=== PATIENT | female | born 1945 | race Caucasian/White ===

== ENCOUNTER 2017-08-06 14:33 | Inpatient (IN) | payer MEDICARE, OTHER ==
[~2017-08-06] VITALS: Ht 172.7 cm; Wt 73.6 kg
[2017-08-06] MEDS ORDERED: SODIUM CHLORIDE 0.9% 1,000 ML IV ONE (14:48)
[2017-08-06] MEDS ORDERED: SODIUM CHLORIDE 0.9% 1,000ML IVBOLUS ONE (15:00)
[2017-08-06] MEDS ORDERED: ONDANSETRON 2MG/ML, 2ML IVPush ONE (15:00)
[2017-08-06] MEDS ORDERED: PLEASE ENTER HEIGHT AND WEIGHT MC SCH ×2 (15:00)
[2017-08-06] MEDS ORDERED: PLEASE ENTER ALLERGIES MC SCH ×4 (15:00)
[2017-08-06] MEDS ORDERED: SODIUM CHLORIDE FLUSH 10ML SYR IVF ONE (15:00)
[2017-08-06 15:13] LABS: HEMOGLOBIN 14.9 g/dL (11.7-16.4); WHITE BLOOD COUNT 8.7 x10^3/uL (3.4-10)
[2017-08-06 15:24] LABS: ASPARTATE AMINO TRANSFERASE 20 U/L (15-37); BLOOD UREA NITROGEN 16 mg/dL (7-18)
[2017-08-06] MEDS ORDERED: HYDROmorphone 1 MG/ML, 1ML ONE ×2 (15:51→17:20)
[2017-08-06] MEDS ORDERED: ONDANSETRON 2MG/ML, 2ML ONE ×2 (15:52→18:16)
[2017-08-06] MEDS: HYDROmorphone 1 MG/ML, 1ML IVPush PRN ×2 (15:54→17:21)
[2017-08-06] MEDS ORDERED: NS + 40MEQ KCL 1,000 ML IV SCH (16:30)
[2017-08-06] MEDS ORDERED: POTASSIUM CHLORIDE 20 MEQ in SODIUM CHLORIDE 0.9% 1,000 ML IV ONE (17:00)
[2017-08-06] MEDS ORDERED: SODIUM CHLORIDE FLUSH 10ML SYR IVF PRN (17:00)
[2017-08-06] MEDS ORDERED: NS + 20MEQ KCL 1,000 ML IV ONE (17:26)
[2017-08-06] MEDS ORDERED: BISACODYL 10 MG SUPP PR PRN (17:30)
[2017-08-06] MEDS ORDERED: LABETALOL 5MG/ML, 20ML IVPush PRN (17:30)
[2017-08-06] MEDS ORDERED: POTASSIUM CHLORIDE 40 MEQ in SODIUM CHLORIDE 0.9% 500 ML IV ONE (17:30)
[2017-08-06] MEDS ORDERED: DOCUSATE 100 MG CAPSULE PO PRN (17:30)
[2017-08-06] MEDS ORDERED: HYDROcodone/APAP 5/325 TABLET PO PRN (17:30)
[2017-08-06] MEDS ORDERED: POLYETHYLENE GLYCOL 17 GM PACKET PO PRN (17:30)
[2017-08-06] MEDS ORDERED: ACETAMINOPHEN 325 MG TABLET PO PRN (17:30)
[2017-08-06] MEDS ORDERED: morphine SULFATE 10 MG/ML, 1ML ONE (18:16)
[2017-08-06] MEDS: morphine SULFATE 10 MG/ML, 1ML IVPush PRN ×2 (18:20→22:21)
[2017-08-06] MEDS: ONDANSETRON 2MG/ML, 2ML IVPush PRN (18:21)
[2017-08-06] MEDS ORDERED: MAGNESIUM SULFATE PMX 2GM/50ML 50 ML IV ONE (18:30)
[2017-08-06 18:58] VITALS: BP 143/64
[2017-08-06] MEDS: POTASSIUM CHLORIDE 20 MEQ PACKET PO SCH (22:14)
[2017-08-06] MEDS: HEPARIN 5,000 UNITS/ML, 1ML SQ SCH (22:20)
[2017-08-06 23:01] LABS: PATH.CAST-FLAG NOT PRESENT; SPERM-FLAG NOT PRESENT; SRC-FLAG NOT PRESENT; XTAL-FLAG NOT PRESENT; YLC-FLAG NOT PRESENT
[2017-08-07 01:18] VITALS: BP 129/60
[2017-08-07] MEDS: D5%-0.45NACL+KCL 20MEQ 1,000 ML IV SCH ×2 (02:13→16:44)
[2017-08-07] MEDS: HEPARIN 5,000 UNITS/ML, 1ML SQ SCH ×3 (05:40→21:33)
[2017-08-07 06:11] LABS: HEMOGLOBIN 10.9 g/dL (11.7-16.4)
[2017-08-07 06:14] LABS: ASPARTATE AMINO TRANSFERASE 19 U/L (15-37); BLOOD UREA NITROGEN 12 mg/dL (7-18)
[2017-08-07 06:41] LABS: DIFF TOTAL CELLS COUNTED 100 CELL DIFF
[2017-08-07 07:41] LABS: ANISOCYTOSIS 1+; VERIFY COUNTS? YES
[2017-08-07 07:42] LABS: HYPOCHROMIA 1+
[2017-08-07 07:54] VITALS: BP 135/63
[2017-08-07] MEDS: POTASSIUM CHLORIDE 20 MEQ PACKET PO SCH ×2 (08:00→16:43)
[2017-08-07] MEDS ORDERED: POLYETHYLENE GLYCOL 17 GM PACKET PO PRN (09:00)
[2017-08-07 12:29] VITALS: BP 154/76
[2017-08-07] MEDS: ONDANSETRON 2MG/ML, 2ML IVPush PRN ×2 (13:09→19:03)
[2017-08-07] MEDS: morphine SULFATE 10 MG/ML, 1ML IVPush PRN ×3 (14:07→23:18)
[2017-08-07] MEDS ORDERED: OMNIPAQUE 350 MG/ML, 100ML BOTTLE ONE (15:59)
[2017-08-07 20:00] VITALS: BP 182/94
[2017-08-08 04:40] VITALS: BP 134/71
[2017-08-08 05:35] LABS: HEMATOCRIT 34.6 % (34.6-47.8); HEMOGLOBIN 11.9 g/dL (11.7-16.4)
[2017-08-08 05:49] LABS: BLOOD UREA NITROGEN 3 mg/dL (7-18)
[2017-08-08] MEDS: HEPARIN 5,000 UNITS/ML, 1ML SQ SCH ×3 (06:08→22:00)
[2017-08-08] MEDS: D5%-0.45NACL+KCL 20MEQ 1,000 ML IV SCH ×2 (06:08→18:28)
[2017-08-08 06:57] VITALS: BP 124/73
[2017-08-08] MEDS: POTASSIUM CHLORIDE 20 MEQ PACKET PO SCH ×2 (08:00→17:35)
[2017-08-08 12:58] VITALS: BP 146/83
[2017-08-08 19:31] VITALS: BP 131/78
[2017-08-09 01:40] VITALS: BP 138/81
[2017-08-09] MEDS: D5%-0.45NACL+KCL 20MEQ 1,000 ML IV SCH ×3 (02:51→22:00)
[2017-08-09 05:30] LABS: HEMOGLOBIN 12.1 g/dL (11.7-16.4); WHITE BLOOD COUNT 5.9 x10^3/uL (3.4-10)
[2017-08-09] MEDS: HEPARIN 5,000 UNITS/ML, 1ML SQ SCH ×3 (05:55→22:00)
[2017-08-09 06:00] LABS: ASPARTATE AMINO TRANSFERASE 81 U/L (15-37); BLOOD UREA NITROGEN 2 mg/dL (7-18)
[2017-08-09 06:46] VITALS: BP 158/85
[2017-08-09] MEDS: POTASSIUM CHLORIDE 20 MEQ PACKET PO SCH ×2 (09:44→17:20)
[2017-08-09 13:20] VITALS: BP 154/83
[2017-08-09 19:45] VITALS: BP 158/76
[2017-08-10 03:45] VITALS: BP 155/78
[2017-08-10] MEDS: HEPARIN 5,000 UNITS/ML, 1ML SQ SCH ×2 (05:11→14:00)
[2017-08-10] MEDS: D5%-0.45NACL+KCL 20MEQ 1,000 ML IV SCH (05:12)
[2017-08-10 06:33] LABS: BLOOD UREA NITROGEN 2 mg/dL (7-18)
[2017-08-10 06:38] LABS: ASPARTATE AMINO TRANSFERASE 31 U/L (15-37)
[2017-08-10 06:52] VITALS: BP 145/80
[2017-08-10] MEDS: POTASSIUM CHLORIDE 20 MEQ PACKET PO SCH (08:49)
[2017-08-10 13:42] VITALS: BP 166/81
== END 2017-08-10 16:59 | disposition home or self-care (01) | DRG 389 ==
LOC: ED 16:11 → EDIP 17:13 → 4WST 18:40
PROVIDERS: ADMIT Internal Medicine; ATTEND Internal Medicine
DX: K56.7 Ileus, unspecified (principal); E87.2 Acidosis; D64.9 Anemia, unspecified; I11.9 Hypertensive heart disease without heart failure; R10.9 Unspecified abdominal pain; E87.6 Hypokalemia; E86.0 Dehydration; E78.5 Hyperlipidemia, unspecified; R73.9 Hyperglycemia, unspecified; K58.0 Irritable bowel syndrome with diarrhea; Z66 Do not resuscitate; Z80.0 Family history of malignant neoplasm of digestive organs; Z82.49 Family history of ischemic heart disease and other diseases of the circulatory system; Z90.49 Acquired absence of other specified parts of digestive tract; Z90.710 Acquired absence of both cervix and uterus
CPT/HCPCS: 36415; 74177; 74241; 78264; 80048; 80053; 81001; 82010; 82140; 82962; 83605; 83690; 83735; 84132; 85025; 87086; 93005; 96361; 96365; 96375; 96376; J1170; J1644; J2405; J3480; Q9967; A9541; C9898; J2270; J3475; J7030; J7040

== ENCOUNTER 2017-08-18 14:49 | Inpatient (IN) | payer MEDICARE, OTHER ==
[~2017-08-18] VITALS: Ht 172.7 cm; Wt 66.4 kg
[2017-08-18] MEDS ORDERED: SODIUM CHLORIDE 0.9% 1,000 ML IV ONE ×2 (15:22→16:15)
[2017-08-18] MEDS ORDERED: ONDANSETRON 2MG/ML, 2ML IVPush ONE (15:30)
[2017-08-18] MEDS ORDERED: FAMOTIDINE 20 MG/2 ML IVP ONE (15:30)
[2017-08-18] MEDS ORDERED: HYDROmorphone 1 MG/ML, 1ML ONE ×2 (15:35→16:09)
[2017-08-18] MEDS ORDERED: ONDANSETRON 2MG/ML, 2ML ONE (15:36)
[2017-08-18] MEDS ORDERED: FAMOTIDINE 20 MG/2 ML ONE (15:36)
[2017-08-18 15:41] LABS: HEMATOCRIT 44.6 % (34.6-47.8)
[2017-08-18] MEDS: HYDROmorphone 1 MG/ML, 1ML IVPush PRN ×2 (15:45→19:08)
[2017-08-18 15:55] LABS: BLOOD UREA NITROGEN 11 mg/dL (7-18)
[2017-08-18 15:59] LABS: ASPARTATE AMINO TRANSFERASE 18 U/L (15-37)
[2017-08-18 16:10] LABS: DIFF TOTAL CELLS COUNTED 100 CELL DIFF
[2017-08-18 16:11] LABS: VERIFY COUNTS? YES
[2017-08-18] MEDS ORDERED: SODIUM CHLORIDE FLUSH 10ML SYR IVF PRN (16:30)
[2017-08-18] MEDS ORDERED: SODIUM CHLORIDE 0.9% 1,000 ML IV SCH (16:56)
[2017-08-18] MEDS ORDERED: hydrALAzine 20 MG/ML, 1ML IV PRN (17:00)
[2017-08-18 18:45] VITALS: BP 144/70
[2017-08-18] MEDS: HEPARIN 5,000 UNITS/ML, 1ML SQ SCH (20:06)
[2017-08-18] MEDS: morphine SULFATE 10 MG/ML, 1ML IVPush PRN (20:55)
[2017-08-19 02:46] VITALS: BP 116/62
[2017-08-19] MEDS: HEPARIN 5,000 UNITS/ML, 1ML SQ SCH ×3 (05:17→21:23)
[2017-08-19 05:55] LABS: HEMATOCRIT 37.6 % (34.6-47.8); HEMOGLOBIN 12.5 g/dL (11.7-16.4); WHITE BLOOD COUNT 12.7 x10^3/uL (3.4-10)
[2017-08-19 06:09] LABS: BLOOD UREA NITROGEN 7 mg/dL (7-18)
[2017-08-19 06:12] LABS: ASPARTATE AMINO TRANSFERASE 19 U/L (15-37)
[2017-08-19 06:50] VITALS: BP 115/56
[2017-08-19] MEDS ORDERED: POTASSIUM CHLORIDE 40 MEQ in SODIUM CHLORIDE 0.9% 500 ML IV ONE (07:30)
[2017-08-19] MEDS: ONDANSETRON 2MG/ML, 2ML IVPush PRN ×2 (15:25→21:27)
[2017-08-19] MEDS: morphine SULFATE 10 MG/ML, 1ML IVPush PRN ×2 (15:32→17:45)
[2017-08-19 16:09] VITALS: BP 144/62
[2017-08-19] MEDS ORDERED: NS + 20MEQ KCL 1,000 ML IV SCH (17:00)
[2017-08-19] MEDS: POTASSIUM CHLORIDE 20 MEQ in SODIUM CHLORIDE 0.9% 1,000 ML IV SCH (18:04)
[2017-08-19 18:40] VITALS: BP 136/68
[2017-08-20] MEDS: POTASSIUM CHLORIDE 20 MEQ in SODIUM CHLORIDE 0.9% 1,000 ML IV SCH ×3 (01:33→21:57)
[2017-08-20 01:35] VITALS: BP 122/71
[2017-08-20 06:22] LABS: HEMATOCRIT 33.5 % (34.6-47.8); HEMOGLOBIN 11.2 g/dL (11.7-16.4); WHITE BLOOD COUNT 7.7 x10^3/uL (3.4-10)
[2017-08-20 06:23] LABS: BLOOD UREA NITROGEN 10 mg/dL (7-18)
[2017-08-20 07:51] VITALS: BP 131/68
[2017-08-20] MEDS: HEPARIN 5,000 UNITS/ML, 1ML SQ SCH ×2 (09:38→17:05)
[2017-08-20] MEDS ORDERED: HYDR25TA6 PO (11:11)
[2017-08-20] MEDS ORDERED: CITA20TA5 PO (11:11)
[2017-08-20] MEDS ORDERED: ONDA4TAB12 PO (11:11)
[2017-08-20] MEDS ORDERED: PANT40TA3 PO (11:11)
[2017-08-20] MEDS ORDERED: LISI40TA PO (11:11)
[2017-08-20] MEDS ORDERED: MELO15TA24 PO (11:11)
[2017-08-20] MEDS ORDERED: AMIT50TA PO (11:11)
[2017-08-20 12:20] VITALS: BP 157/75
[2017-08-20] MEDS ORDERED: OMNIPAQUE 350 MG/ML, 100ML BOTTLE ONE (14:30)
[2017-08-20 19:19] VITALS: BP 153/89
[2017-08-21 00:08] VITALS: BP 159/73
[2017-08-21] MEDS: HEPARIN 5,000 UNITS/ML, 1ML SQ SCH ×4 (00:11→23:27)
[2017-08-21 05:14] LABS: WHITE BLOOD COUNT 6.3 x10^3/uL (3.4-10)
[2017-08-21 05:15] LABS: HEMATOCRIT 33.7 % (34.6-47.8); HEMOGLOBIN 11.4 g/dL (11.7-16.4)
[2017-08-21 05:38] LABS: ASPARTATE AMINO TRANSFERASE 17 U/L (15-37); BLOOD UREA NITROGEN 3 mg/dL (7-18)
[2017-08-21] MEDS: POTASSIUM CHLORIDE 20 MEQ in SODIUM CHLORIDE 0.9% 1,000 ML IV SCH ×2 (06:19→20:22)
[2017-08-21 06:25] VITALS: BP 177/98
[2017-08-21 09:00] VITALS: BP 177/92
[2017-08-21] MEDS: CITALOPRAM 20 MG TABLET PO SCH (11:53)
[2017-08-21] MEDS: PANTOPROZOLE 40MG TABLET PO SCH (11:53)
[2017-08-21] MEDS: LISINOPRIL 20 MG TABLET PO SCH (11:54)
[2017-08-21 14:44] VITALS: BP 176/90
[2017-08-21 19:23] VITALS: BP 153/84
[2017-08-21] MEDS: DIPHENHYDRAMINE 25 MG CAPSULE PO PRN (20:22)
[2017-08-21] MEDS: AMITRIPTYLINE 50 MG TABLET PO PRN (20:23)
[2017-08-22 01:52] VITALS: BP 166/77
[2017-08-22] MEDS: HEPARIN 5,000 UNITS/ML, 1ML SQ SCH ×2 (08:00→19:56)
[2017-08-22 08:04] VITALS: BP 170/81
[2017-08-22] MEDS: LISINOPRIL 20 MG TABLET PO SCH (08:36)
[2017-08-22] MEDS: CITALOPRAM 20 MG TABLET PO SCH (08:36)
[2017-08-22] MEDS: PANTOPROZOLE 40MG TABLET PO SCH (08:36)
[2017-08-22 12:15] VITALS: BP 103/54
[2017-08-22] MEDS ORDERED: MIDAZOLAM 1 MG/ML, 2ML ONE ×2 (12:40→14:22)
[2017-08-22] MEDS ORDERED: ONDANSETRON 2MG/ML, 2ML ONE ×2 (13:09→14:11)
[2017-08-22] MEDS ORDERED: DEXAMETHASONE 4 MG/ML, 1ML ONE (13:09)
[2017-08-22] MEDS ORDERED: ROCURONIUM 10 MG/ML,10ML ONE (13:09)
[2017-08-22] MEDS ORDERED: SUCCINYLCHOLINE 20 MG/ML, 10ML ONE (13:09)
[2017-08-22] MEDS ORDERED: PROPOFOL 10 MG/ML, 20ML ONE (13:09)
[2017-08-22] MEDS ORDERED: FENTANYL PF 100 MCG/2ML ONE (13:14)
[2017-08-22] MEDS ORDERED: MEPERIDINE/PF 25MG/0.5ML IVPush PRN (13:30)
[2017-08-22] MEDS ORDERED: OXYcodone 5 MG/5 ML ORAL.SOL UDC PO PRN (13:30)
[2017-08-22] MEDS ORDERED: METOPROLOL 1 MG/ML, 5ML IV PRN (13:30)
[2017-08-22] MEDS ORDERED: hydrALAzine 20 MG/ML, 1ML IV PRN (13:30)
[2017-08-22] MEDS ORDERED: HYDROcodone/APAP 7.5-325MG/15ML UDC PO PRN (13:30)
[2017-08-22] MEDS ORDERED: ONDANSETRON 2MG/ML, 2ML IVPush PRN (13:30)
[2017-08-22] MEDS ORDERED: ALBUTEROL SULFATE 2.5 MG/3 ML NPPB PRN (13:30)
[2017-08-22] MEDS ORDERED: EPHEDRINE 50 MG/ML, 1ML IVPush PRN (13:30)
[2017-08-22] MEDS ORDERED: METOCLOPRAMIDE 5 MG/ML, 2ML IV PRN (13:30)
[2017-08-22] MEDS ORDERED: ACETAMINOPHEN 325 MG TABLET PO PRN (13:30)
[2017-08-22] MEDS ORDERED: LABETALOL 5MG/ML, 20ML IV PRN (13:30)
[2017-08-22] MEDS ORDERED: FENTANYL PF 100 MCG/2ML IV PRN (13:30)
[2017-08-22] MEDS ORDERED: HYDROmorphone 1 MG/ML, 1ML IV PRN (13:30)
[2017-08-22] MEDS ORDERED: METOCLOPRAMIDE 5 MG/ML, 2ML ONE (14:11)
[2017-08-22] MEDS ORDERED: MIDAZOLAM 1 MG/ML, 2ML IV PRN (14:30)
[2017-08-22] MEDS ORDERED: hydrALAzine 20 MG/ML, 1ML ONE (14:34)
[2017-08-22] MEDS: ONDANSETRON 2MG/ML, 2ML IVPush PRN (15:38)
[2017-08-22] MEDS ORDERED: SUCR1ORA5 PO (15:44)
[2017-08-22] MEDS ORDERED: OMEP-110 PO (15:44)
[2017-08-22] MEDS: morphine SULFATE 10 MG/ML, 1ML IVPush PRN (18:19)
[2017-08-22 20:30] VITALS: BP 138/58
[2017-08-22] MEDS: AMITRIPTYLINE 50 MG TABLET PO PRN (21:07)
[2017-08-22] MEDS: DIPHENHYDRAMINE 25 MG CAPSULE PO PRN (21:07)
[2017-08-22] MEDS: POTASSIUM CHLORIDE 20 MEQ in SODIUM CHLORIDE 0.9% 1,000 ML IV SCH (21:07)
[2017-08-23 02:31] VITALS: BP 130/74
[2017-08-23] MEDS: HEPARIN 5,000 UNITS/ML, 1ML SQ SCH (04:00)
[2017-08-23 09:09] VITALS: BP 136/68
[2017-08-23] MEDS: CITALOPRAM 20 MG TABLET PO SCH (09:14)
[2017-08-23] MEDS: LISINOPRIL 20 MG TABLET PO SCH (09:14)
[2017-08-23] MEDS: PANTOPROZOLE 40MG TABLET PO SCH (09:14)
== END 2017-08-23 11:48 | disposition home or self-care (01) | DRG 381 ==
LOC: ED 18:14 → EDIP 18:19 → 4WST 18:21 → DCLOUNGE 08-23 11:30
PROVIDERS: ADMIT Family Medicine; ATTEND Family Medicine
PROC: 0D778ZZ Dilation of Stomach, Pylorus, Via Natural or Artificial Opening Endoscopic (ICD-10-PCS; principal; 2017-08-22 12:00)
DX: K31.1 Adult hypertrophic pyloric stenosis (principal); K56.7 Ileus, unspecified; K55.1 Chronic vascular disorders of intestine; K22.0 Achalasia of cardia; E87.1 Hypo-osmolality and hyponatremia; D72.829 Elevated white blood cell count, unspecified; E78.5 Hyperlipidemia, unspecified; E87.6 Hypokalemia; G89.29 Other chronic pain; I10 Essential (primary) hypertension; K58.9 Irritable bowel syndrome, unspecified; Z80.0 Family history of malignant neoplasm of digestive organs; Z82.49 Family history of ischemic heart disease and other diseases of the circulatory system; Z90.49 Acquired absence of other specified parts of digestive tract; Z90.710 Acquired absence of both cervix and uterus; R73.9 Hyperglycemia, unspecified
CPT/HCPCS: 36415; 71010; 74174; 78264; 80048; 80053; 81001; 83690; 83735; 84100; 85025; 93005; 96361; 96374; 96375; J1100; J1170; J1644; J2250; J2405; J2704; J3010; J3480; Q9967; A9541; C1725; C9898; J0330; J0360; J2270; J2765; J7030; J7040; Q0163; S0028